=== PATIENT | female | born 1950 | race Caucasian/White ===

== ENCOUNTER 2023-08-15 21:09 | Emergency (ER) | payer BC, OTHER ==
[2023-08-15 21:38] VITALS: BMI 22.3
[2023-08-15 21:48] LABS: HEMATOCRIT 34.3 % (32.4-45.2); HEMOGLOBIN 11.3 G/dL (10.7-15.3); MCH 31.1 pg (25.7-33.7); MCHC 32.9 g/dl (32.0-36.0); MEAN CELL VOLUME 94.7 fl (80-96); MEAN PLT VOLUME 8.4 fl (7.5-11.1); PLATELET COUNT 242.8 10^3/uL (134-434); RBC 3.62 10^6/uL (3.60-5.2); RDW 13.4 % (11.6-15.6); WHITE BLOOD COUNT 7.8 10^3/uL (4.0-10.8)
[2023-08-15 21:57] LABS: PLATELET ESTIMATE ADEQUATE
[2023-08-15 22:08] LABS: BILIRUBIN,TOTAL 0.9 mg/dl (0.2-1); BLOOD UREA NITROGEN 22.1 mg/dl (7-18); CALCIUM 8.3 mg/dl (8.5-10.1); CREATININE 1.3 mg/dl (0.6-1.3); POTASSIUM 3.6 mmol/L (3.5-5.1); SGOT/AST 168.3 U/L (15-37); TOT PROT 6.4 g/dl (6.4-8.2)
[2023-08-16 01:22] VITALS: BP 127/62; PULSE 57; RESP 16; TEMP 98
== END 2023-08-16 01:30 | disposition home or self-care (01) ==
LOC: FER 21:09
DX: R07.89 Other chest pain (principal)
CPT/HCPCS: 36415; 80053; 84484; 85027; 93005; 99284-25